=== PATIENT | female | born 1985 | race Caucasian/White ===

== ENCOUNTER 2019-03-28 14:52 | Emergency (ER) | payer SELFPAY ==
[~2019-03-28] VITALS: Ht 170.2 cm; Wt 53.4 kg
[2019-03-28 14:58] VITALS: BP 109/66; TEMP 98.7
[2019-03-28] MEDS ORDERED: EXCEDRIN TENSIO1 CAP PO (15:04)
[2019-03-28 17:10] VITALS: PULSE 71
== END 2019-03-28 17:10 | disposition home or self-care (01) ==
LOC: COL.ER 14:52
DX: M23.91 Unspecified internal derangement of right knee (principal); X50.3XXA Overexertion from repetitive movements, initial encounter